=== PATIENT | female | born 1955 ===

== ENCOUNTER → 2022-02-19 11:10 | Outpatient (REF) | payer MEDICARE, OTHER, SELFPAY | LOC: ANHLAB 11:10 | PROVIDERS: Visit Provider Nurse Practitioner | DX: C44.41 Basal cell carcinoma of skin of scalp and neck (principal) | CPT/HCPCS: 88305; 88331 ==

== ENCOUNTER 2024-10-15 17:16 | Emergency (ER) | payer MEDICARE, OTHER, SELFPAY ==
--- NOTE | ~2024-10-15 | CT_ITS ---
CT brain wo con Ordering provider: Barbara Colin PA-C History: 69 years Female with . fall . Comparison: None. Technique: CT of the head without contrast. Radiation reduction technique utilized.The dose-length product was 605.33 mGy-cm. FINDINGS: BRAIN PARENCHYMA AND CSF SPACES: Mild leukoaraiosis and diffuse cortical atrophy. Mild atheromatous d isease. Bilateral cerebellar calcifications. 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 No midline shift, mass effect or hemorrhage. The br ain parenchyma and CSF spaces are otherwise normal. VISUALIZED PARANASAL SINUSES: Well aerated. MASTOIDS: Well aerated. BONES: The bones appear intact. SOFT TISSUES: Visualized nasopharynx is normal. Superficial soft tissues are normal. IMPRESSION: No acute intracranial findings. Reviewed, dictated and finalized at location A. READER
--- NOTE | ~2024-10-15 | XR_ITS ---
XR tibia fibula LT 2V Ordering provider: Barbara Colin PA-C History: . fall . Comparison: None. FINDINGS: BONES: No acute fracture or dislocation. JOINT SPACES: Normal. SOFT TISSUES: Normal. IMPRESSION: No acute osseous abnormality left leg. Reviewed, dictated and finalized at location A. ONAL ACCOUNT REPRESENTATIVE
--- NOTE | ~2024-10-15 | XR_ITS ---
XR knee LT min 4V Ordering provider: Barbara Colin History: . fall . Comparison: None. FINDINGS: BONES: No acute fracture or dislocation. JOINT SPACES: Normal. SOFT TISSUES: Normal. IMPRESSION: No acute osseous abnormality left knee. Reviewed, dictated and finalized at location A. NOLOGY MANAGER
--- NOTE | ~2024-10-15 | CT_ITS ---
CT cervical spine wo con Ordering provider: Barbara Colin PA-C History: . fall . Comparison: None. Technique: CT of the cervical spine was performed without contrast. Sagittal and coronal reformatted images were also obtained and reviewed. Automated exposure control and iterative reconstruction sunny hnique were employed. The dose-length product was 301.01 mGy-cm. FINDINGS: VERTEBRAE: No subluxation or acute fracture. The occipital condyles are intact. Small bony fragment near to the tip of the odontoid tip most likely nonunited apophysis or ligamentous ossification. Foll ow-up advised. Levoscoliosis. Narrowing of the right foramen at the level of C3-C4. DISC SPACES: Slight narrowing of the disc C4-C5. Multilevel facet joint disease. PARASPINOUS SOFT TISSUES: Normal. IMPRESSION: No acute osseous abnormality cervical spine. Reviewed, dictated and finalized at location A. CTOR COST
[2024-10-15 17:37] VITALS: BP 102/85; PULSE 95; RESP 18; TEMP 36.7; O2SAT 96
--- NOTE | 2024-10-15 17:47 | ECG_ITS ---
Test Date: 2024-10-15 18:48:51 Measurements Intervals [place] Rate: 81 P: 21 AR: 153 QRS: -44 QRSD: 84 T: 58 QT: 371 QTc: 432 Interpretive Statements SINUS RHYTHM LEFT AXIS DEVIATION [QRS AXIS < -30] PATTERN CONSISTENT WITH PULMONARY DISEASE NONSPECIFIC T-WAVE ABNORMALITY No previous ECG available for comparison Electronically Signed On 10-19-2024 14:49:20 INDUSTRIAL RELATIONS ANALYST by Carlos Enrique Dixon M.D.
--- NOTE | 2024-10-15 17:48 | ED_ITS ---
HPI - Fall General Chief Complaint: Fall Stated Complaint: GLF STRUCK HEAD C/O L LEG PAIN Focused HPI: 69 y/o F presents to the emergency department with her daughter at bedside for ground level fall. Patient has a history of dementia and is A&O times 1-2 at baseline. Patient's daughter provides history. States patient had a ground level fall at her memory care facility that was unwitnessed. States that she was still the patient was attempting to transfer from the couch to the wheelchair when she fell. Unknown if she hit her head or lose consciousness. Patient is reporting pain to her neck, left knee and left leg. She otherwise has no complaints. She is not anticoagulated. GENERAL: Well-appearing, well-nourished, and in no acute distress. HEAD: Normocephalic, atraumatic. CHEST: Clear to auscultation. ?No respiratory distress. HEART: Regular rate and rhythm.? NEURO: ?Alert and oriented x3. Patient screened in triage and initial orders placed.? ?Additional care and disposition to be based upon?diagnostic testing and treatment. Related Data Home Medications ?Medication ?Instructions ?Recorded ?Confirmed ?Last Taken ?Type carbidopa 25 mg-levodopa 100 1 tablet PO QID 02/19/22 Unknown History mg-entacapone 200 mg tablet colestipol 1 gram tablet 1 g PO ONCE 02/19/22 Unknown History dulaglutide 1.5 mg/0.5 mL 1.5 mg subcut WEEKLY 02/19/22 Unknown History subcutaneous pen injector (Trulicity) empagliflozin 10 mg tablet 10 mg PO DAILY 02/19/22 Unknown History (Jardiance) ferrous sulfate 27 mg iron tablet 27 mg PO DAILY 02/19/22 Unknown History fluoxetine 20 mg capsule (Prozac) 20 mg PO DAILY 02/19/22 Unknown History omeprazole 20 mg capsule,delayed 20 mg PO DAILY 02/19/22 Unknown History release vitamin E 200 unit capsule 200 unit PO DAILY 02/19/22 Unknown History Allergies Allergy/AdvReac Type Severity Reaction Status Date / Time Thiomersal AdvReac Other Uncoded 10/15/24 17:17 PMFSH Past Medical History Medical History (Updated 10/16/24 @ 18:56 by Barbara Colin PA-C) History of basal cell carcinoma (BCC) Leukemia Parkinson disease Surgical History Surgical History (Updated 02/19/22 @ 10:29 by Dora Chatman [facility]) History of hysterectomy History of D&C History of shoulder surgery History of cholecystectomy Social History Social History Smoking status: Never smoker Alcohol intake: never Course Vital Signs Vital signs: Vital Signs Temperature 98.0 F 10/15/24 17:37 Pulse Rate 95 10/15/24 17:37 Respiratory Rate 18 10/15/24 17:37 Blood Pressure 102/85 10/15/24 17:37 Pulse Oximetry 96 10/15/24 17:37 Temperature 98.0 F 10/15/24 17:37 Pulse Rate 95 10/15/24 17:37 Respiratory Rate 18 10/15/24 17:37 Blood Pressure 102/85 10/15/24 17:37 Pulse Oximetry 96 10/15/24 17:37 MDM - Fall Lab Data 10/15/24 18:39 10/15/24 18:39 Labs: Lab Results 10/15/24 Range/Units 18:39 WBC 9.7 (4.5-10.0) K/mm3 RBC 4.58 (4.2-5.4) M/mm3 Hgb 14.0 (12.0-15.0) g/dL Hct 42.1 (37.0-47.0) % MCV 91.9 (80-100) fl MCH 30.6 (26-34) pg MCHC 33.3 (32-36) g/dl RDW 12.8 (11.5-14.5) % Plt Count 347 (150-375) k/mm3 MPV 9.5 (7.4-10.4) fl Immature Gran % (Auto) 0.6 H (0-0.5) % Neut % (Auto) 69.2 (45.5-73.1) % Lymph % (Auto) 21.7 (18.3-44.2) % [place] % (Auto) 6.5 (2.6-8.5) % Eos % (Auto) 1.2 (0-4.4) % Baso % (Auto) 0.8 (0.2-1.2) % Lymph # (Auto) 2.10 (0.9-3.2) K/mm3 [place] # (Auto) 0.6 (0.1-0.6) K/mm3 Eos # (Auto) 0.1 (0-0.3) K/mm3 Baso # (Auto) 0.1 (0.0-0.1) K/mm3 Abs Immat Gran (auto) 0.06 H (0.00-0.031) K/mm3 Absolute Neuts (auto) 6.7 (1.3-6.7) K/mm3 Absolute Nucleated RBC 0.000 (0.0-0.012) K/mm3 Nucleated RBC % 0.0 (0.0-0.2) % Sodium 139 (137-145) mmol/L Potassium 3.7 (3.4-5.0) mmol/L Chloride 104 (98-107) mmol/L Carbon Dioxide 30 (22-30) mmol/L Anion Gap 5 (4-12) mmol/L BUN 14 (7-17) mg/dL Creatinine 0.70 (0.7-1.0) mg/dL Estim Creat Clear Calc 60 ml/min Estimated GFR > 60 (59 - ) Glucose 222 H (65-110) mg/dL Calcium 9.4 (8.4-10.2) mg/dL Total Bilirubin 0.8 (0.2-1.3) mg/dL AST 15 (14-36) U/L ALT 7 (6-35) U/L Alkaline Phosphatase 86 (38-126) U/L Total Protein 8.0 (6.3-8.2) g/dL Albumin 4.3 (3.5-5.1) g/dL Discharge Plan Discharge Clinical Impression: Fall Qualifiers: Encounter type: initial encounter Qualified Code(s): W19.XXXA - Unspecified fall, initial encounter Patient Disposition: Elopement After Seen by Prov Condition: Stable Patient Language: Serbian Prescriptions: No Action colestipol 1 gram tablet 1 g PO ONCE Jardiance 10 mg tablet 10 mg PO DAILY Trulicity 1.5 mg/0.5 mL pen injector 1.5 mg subcut WEEKLY zcwudpjkb-abblkxhb-xbdjjedyei 25-100-200 mg tablet 1 tablet PO QID omeprazole 20 mg capsule,delayed release(DR/EC) 20 mg PO DAILY vitamin E 200 unit capsule 200 unit PO DAILY ferrous sulfate 27 mg iron tablet 27 mg PO DAILY fluoxetine [Prozac] 20 mg capsule 20 mg PO DAILY Follow-up/Referrals: PHYSICIAN NOT ON STAFF,NONSTAFF [Primary Care Provider] -
[2024-10-15 18:44] LABS: Basophils Absolute Auto 0.1 K/mm3 (0.0-0.1); Basophils Percent Auto 0.8 % (0.2-1.2); Eosinophils Absolute Auto 0.1 K/mm3 (0-0.3); Eosinophils Percent Auto 1.2 % (0-4.4); Hematocrit 42.1 % (37.0-47.0); Immature Granulocyte Absolute 0.06 K/mm3 (0.00-0.031); Immature Granulocyte Percent A 0.6 % (0-0.5); Lymphocytes Percent Auto 21.7 % (18.3-44.2); Mean Corpuscular HGB Conc 33.3 g/dl (32-36); Mean Corpuscular Hemoglobin 30.6 pg (26-34); Mean Corpuscular Volume 91.9 fl (80-100); Mean Platelet Volume 9.5 fl (7.4-10.4); Monocytes Absolute Auto 0.6 K/mm3 (0.1-0.6); Monocytes Percent Auto 6.5 % (2.6-8.5); Neutrophils Absolute Auto 6.7 K/mm3 (1.3-6.7); Neutrophils Percent Auto 69.2 % (45.5-73.1); Platelet Count Result 347 k/mm3 (150-375); Red Blood Count 4.58 M/mm3 (4.2-5.4); Red Cell Distribution Width 12.8 % (11.5-14.5); White Blood Count 9.7 K/mm3 (4.5-10.0)
[2024-10-15 18:56] LABS: Alanine Aminotransferase 7 U/L (6-35); Albumin Level 4.3 g/dL (3.5-5.1); Alkaline Phosphatase 86 U/L (38-126); Anion Gap 5 mmol/L (4-12); Aspartate Amino Transferase 15 U/L (14-36); Bilirubin,Total 0.8 mg/dL (0.2-1.3); Blood Urea Nitrogen 14 mg/dL (7-17); Calcium 9.4 mg/dL (8.4-10.2); Carbon Dioxide 30 mmol/L (22-30); Chloride 104 mmol/L (98-107); Estimated CRCL calculation 60 ml/min; Estimated Glomerular Filt Rate > 60; Glucose 222 mg/dL (65-110); Potassium 3.7 mmol/L (3.4-5.0); Sodium 139 mmol/L (137-145)
--- NOTE | 2024-10-15 23:42 | PC.NURSE ---
no answer at triage for vital signs
--- OUTSIDE RECORDS SUMMARY | 2024-10-23 04:30 | XMS_ITS | Continuity of Care Document ---
Author Name [facility] Organization [facility] Care Team Providers Care Willower Name Role Phone [facility] Unavailable Unavailable Problems Combined list of problems from Department of Defense and Veterans Affairs facilities. It does not include entries that were removed or entered in error. Problem Status Onset Date Problem Type Date of Resolution Comments Source Patient Counseling: Inactive Condition D oD Vaccines Prophylactic Need Inactive Condition DoD Medications Combined list of outpatient medications from Department of Defense and Veterans Affairs facilities.Medications provided include 1) outpatient medications from the last 15 months, and 2) patient-reported medications. Medication Details Route Status Patient Instructions Prescription Expires Prescription Number Last Dispense Date Ordering Provider Order Date Order Qty Source ATORVASTATI N CALCIUM (atorvastat in calcium), 80 MG, TABLET, ORAL, CHRISTINA PHARMACEU, 500 ea. BOTTLE Cancele d [id number] : 2023 0 Pharmac y Data Transac tion Service Facilit y ATORVASTATI N CALCIUM (atorvastat in calcium), 80 MG, TABLET, ORAL, CHRISTINA PHARMACEU, 500 ea. BOTTLE Active [id number] 4 2023 90 Pharmac y Data Transac tion Service Facilit y ATORVASTATI N CALCIUM (atorvastat in calcium), 80 MG, TABLET, ORAL, CHRISTINA PHARMACEU, 500 ea. BOTTLE Active [id number] 4 2023 90 Pharmac y Data Transac tion Service Facilit y COLESTIPOL HCL (colestipol HCl), 1 G, TABLET, ORAL, ZYDUS PHARMACEU, 120 ea. BOTTLE Active [id number] 4 2023 30 Pharmac y Data Transac tion Service Facilit y COLESTIPOL HCL (COLESTIPOL HCL), 1G, TABLET, ORAL, [employer] 120 ea. BOTTLE Active [id number] 4 2023 180 Pharmac y Data Transac tion Service Facilit y FLUOXETINE HCL (fluoxetine HCl), 20 MG, CAPSULE, ORAL, CHRISTINA PHARMACEU, 1000 ea. BOTTLE Active [id number] 4 2023 90 Pharmac y Data Transac tion Service Facilit y FLUOXETINE HCL (FLUOXETINE HCL), 20MG, CAPSULE, ORAL, [employer], 1000 ea. BOTTLE Active [id number] 4 2023 90 Pharmac y Data Transac tion Service Facilit y LANTUS SOLOSTAR (INSULIN GLARGINE,[facility]ANLOG ), 100/ML (3), INSULN PEN, SUB-Q, SANOFI-AVEN TIS, 3 ml SYRINGE Active [id number] 4 2023 3 Pharmac y Data Transac tion Service Facilit y LANTUS SOLOSTAR (INSULIN GLARGINE,[facility]ANLOG ), 100/ML (3), INSULN PEN, SUB-Q, SANOFI-AVEN TIS, 3 ml SYRINGE Active [id number] 4 2023 3 Pharmac y Data Transac tion Service Facilit y OMEPRAZOLE (omeprazole ), 20 MG, CAPSULE DR, ORAL, [employer], 1000 ea. BOTTLE Cancele d [id number] 4 [id number] : 2023 0 Pharmac y Data Transac tion Service Facilit y QUETIAPINE FUMARATE (QUETIAPINE FUMARATE), 25 MG, TABLET, ORAL, [employer], 1000 ea. BOTTLE Active [id number] 4 2023 90 Pharmac y Data Transac tion Service Facilit y TRULICITY (DULAGLUTID E), 1.5 MG/0.5, PEN INJCTR, SUB-Q, [employer] 0.5 ml SYRINGE Cancele d [id number] : 2023 0 Pharmac y Data Transac tion Service Facilit y TRULICITY (DULAGLUTID E), 1.5 MG/0.5, PEN INJCTR, SUB-Q, [employer] 0.5 ml SYRINGE Cancele d [id number] : 2023 0 Pharmac y Data Transac tion Service Facilit y TRULICITY (DULAGLUTID E), 1.5 MG/0.5, PEN INJCTR, SUB-Q, [employer] 0.5 ml SYRINGE Cancele d [id number] : 2023 0 Pharmac y Data Transac tion Service Facilit y TRULICITY (DULAGLUTID E), 1.5 MG/0.5, PEN INJCTR, SUB-Q, [employer] 0.5 ml SYRINGE Cancele d [id number] 4 [id number] : 2023 0 Pharmac y Data Transac tion Service Facilit y TRULICITY (DULAGLUTID E), 1.5 MG/0.5, PEN INJCTR, SUB-Q, [employer] 0.5 ml SYRINGE Cancele d [id number] : 2023 0 Pharmac y Data Transac tion Service Facilit y TRULICITY (DULAGLUTID E), 1.5 MG/0.5, PEN INJCTR, SUB-Q, [employer] 0.5 ml SYRINGE Cancele d [id number] : 2023 0 Pharmac y Data Transac tion Service Facilit y TRULICITY (DULAGLUTID E), 1.5 MG/0.5, PEN INJCTR, SUB-Q, [employer] 0.5 ml SYRINGE Cancele d [id number] : 2023 0 Pharmac y Data Transac tion Service Facilit y TRULICITY (DULAGLUTID E), 1.5 MG/0.5, PEN INJCTR, SUB-Q, [employer] 0.5 ml SYRINGE Cancele d [id number] : 2023 0 Pharmac y Data Transac tion Service Facilit y TRULICITY (DULAGLUTID E), 1.5 MG/0.5, PEN INJCTR, SUB-Q, [employer] 0.5 ml SYRINGE Cancele d [id number] 4 [id number] : 2023 0 Pharmac y Data Transac tion Service Facilit y TRULICITY (DULAGLUTID E), 1.5 MG/0.5, PEN INJCTR, SUB-Q, [employer] 0.5 ml SYRINGE Cancele d [id number] : 2023 0 Pharmac y Data Transac tion Service Facilit y Encounters Combined list of: 1) Encounters from Department of Veterans Affairs facilities going back up to thelast 18 months. 2) Encounters from the Department of Defense facilities going back up to 280 months. Location Location Details Encounter Type Encounter Number Reason For Visit Attending Provider ADM Date DC Date Status Disposition Source [place]([facility]) OUTPATIENT [id number] KATELYN HERNANDEZ 09/18 Released w/o Limitations [place]([facility]) Procedures Combined list of: 1) Procedures from Department of Veterans Affairs facilities going back up to thelast 18 months, not all VA non-surgical procedures are included; 2) All procedures from the Department of [facility] facilities. Procedure Procedure Type Code Date Perfomer Comments Jono angel Influenza Split Virus Vaccine 0.5mL Dosage Intramuscular 09/19/2005 THELMA OSCAR [facility] INFLUENZA VIRUS VACCINE, TRIVALENT (IIV3), SPLIT VIRUS, 0.5 ML DOSAGE, FOR INTRAMUSCULAR USE 09/18/2005 DoD Social History Combined list of available smoking, tobacco, and other social history from Department of Defense and Veterans Affairs facilities. Social History Type Response Date Comment Jono angel This section is an empty social history section. [facility]
== END 2024-10-15 23:43 | disposition left against medical advice (07) ==
LOC: ANHED 10-16 01:17
PROVIDERS: Emergency Provider Physician Assistant
DX: S89.92XA Unspecified injury of left lower leg, initial encounter (principal); S19.9XXA Unspecified injury of neck, initial encounter; G20.A1 Parkinson's disease without dyskinesia, without mention of fluctuations; Z85.6 Personal history of leukemia; Z85.828 Personal history of other malignant neoplasm of skin; Z90.710 Acquired absence of both cervix and uterus; Z90.49 Acquired absence of other specified parts of digestive tract; R94.31 Abnormal electrocardiogram [ECG] [EKG]; Z79.85 Long-term (current) use of injectable non-insulin antidiabetic drugs; Z79.84 Long term (current) use of oral hypoglycemic drugs; Z79.899 Other long term (current) drug therapy
CPT/HCPCS: 36415; 70450; 72125; 73564; 73590; 80053; 85025; 93005; 99284